=== PATIENT | female | born 1960 | race Caucasian/White ===

== ENCOUNTER → 2021-04-15 08:22 | Outpatient (CLI) | payer BC, SELFPAY ==
--- NOTE | ~2021-04-15 | MR_ITS ---
EXAMINATION: MR brain/brain stem wo con EXAM DATE: 04/15/2021 09:06 INDICATION: Atypical migraine, vision changes atypical migraine. TECHNIQUE: Magnetic resonance imaging (MRI) of the brain/brain stem obtained without contrast. Landry al T1, axial diffusion, gradient echo (T2*), T1, T2, FLAIR sequences obtained. There is no prior st udy for comparison. FINDINGS: There are no areas of restricted diffusion to suggest acute infarction. There is no acute hemorrhage seen on the T2*, a hemosiderin sensitive sequence. No intraparenchymal brain mass. The ve ntricles are normal in size. There are no extra-axial collections. Flow voids are seen in the cereb ral arteries on the T2-weighted sequences consistent with their expected patency. The orbits are unr emarkable. Soft tissue is unremarkable. IMPRESSION: Unremarkable brain MRI examination. Reviewed, dictated and finalized at location A.
== END ==
PROVIDERS: PCP Family Medicine; Visit Provider Family Medicine
DX: G43.009 Migraine without aura, not intractable, without status migrainosus (principal); H53.9 Unspecified visual disturbance
CPT/HCPCS: 70551